=== PATIENT | female | born 1955 | race African-American/Black ===

== ENCOUNTER → 2024-03-18 | Day surgery (SDC) | payer BC, MEDICARE ==
[2024-03-17 09:06] LABS: BASOPHILS # (AUTO) 0.1 (0.0-0.1); BASOPHILS % 0.6 % (0.0-1.0); EOSINOPHILS # (AUTO) 0.3 (0.0-0.4); EOSINOPHILS % 3.1 % (0.0-6.0); HEMATOCRIT 42.9 % (34.2-44.1); HEMOGLOBIN 13.5 g/dL (12.0-16.0); LYMPHOCYTES # (AUTO) 2.4 (1.0-3.2); MEAN CORPUSCULAR HEMOGLOBIN 25.5 pg (28-32); MEAN CORPUSCULAR HGB CONC 31.5 g/dL (31-35); MEAN CORPUSCULAR VOLUME 80.9 fL (81-99); MONOCYTES # (AUTO) 0.8 (0.2-0.8); MONOCYTES % 10.4 % (4.4-11.3); NEUTROPHILS # (AUTO) 4.5 (2.1-6.9); NEUTROPHILS % 55.5 % (38.7-80.0); PLATELET COUNT 251 x10e3/uL (140-360); RED CELL DISTRIBUTION WIDTH 16.7 % (11.7-14.4); WHITE BLOOD COUNT 8.11 x10e3/uL (4.8-10.8)
[~2024-03-18] MED LIST: CRESTOR40 MG PO; EDARBYCLOR 40-1 EACH PO; FENTANYL CITRATE/PF 100MCG/2 ML INJ ONE; LIDOCAINE HCL 2% LOCAL INJ 5 ML SDV VIAL INJ ONE; LYRICA150 MG PO; METOPROLOL SUCC50 MG PO; PROPOFOL IV EMULSION 10 MG/ML 20 ML VIAL ONE; SYNTHROID125 MCG PO; VITAMIN B-121000 MCG PO; VITAMIN B-12500 MCG; VITAMIN C1000 MG PO; VITAMIN D31 ML
[2024-03-18] MEDS: LACTATED RINGER'S 1,000 ML ONE (12:54)
[2024-03-18 13:09] VITALS: TEMP 97
[2024-03-18 13:35] VITALS: BP 130/70; PULSE 65; RESP 15; O2SAT 98
== END | disposition home or self-care (01) ==
LOC: OR 10:54
PROVIDERS: ATTEND Internal Medicine Gastroenterology
DX: K29.50 Unspecified chronic gastritis without bleeding (principal); D12.2 Benign neoplasm of ascending colon; K31.A12 Gastric intestinal metaplasia without dysplasia, involving the body (corpus); K44.9 Diaphragmatic hernia without obstruction or gangrene; K57.30 Diverticulosis of large intestine without perforation or abscess without bleeding; K59.09 Other constipation; K64.8 Other hemorrhoids; D64.9 Anemia, unspecified; G47.33 Obstructive sleep apnea (adult) (pediatric); I10 Essential (primary) hypertension; E78.5 Hyperlipidemia, unspecified; E11.9 Type 2 diabetes mellitus without complications; E03.9 Hypothyroidism, unspecified; M79.7 Fibromyalgia; R79.89 Other specified abnormal findings of blood chemistry; Z01.812 Encounter for preprocedural laboratory examination; Z79.82 Long term (current) use of aspirin; Z79.1 Long term (current) use of non-steroidal anti-inflammatories (NSAID); Z79.899 Other long term (current) drug therapy; Z68.34 Body mass index [BMI] 34.0-34.9, adult; Z86.73 Personal history of transient ischemic attack (TIA), and cerebral infarction without residual deficits; Z87.898 Personal history of other specified conditions
CPT/HCPCS: 36415; 43239; 45384; 85025; 88305; 88342; J2003; J2704; J3010; J7121